=== PATIENT | female | born 1935 ===

== ENCOUNTER → 2019-01-24 | Outpatient (CLI) | payer MEDICARE ==
[~2019-01-24] MED LIST: ACEDIPPM PO; Aspir 8181 MG PO; CALCAVITD PO; CALCIUM 600 +1 EA11 PO; CELE200 PO; DIGESTIVE ENZYME PO; EMERGEN-C PO; ERGO400 PO; ESTMED1.5T PO; FISH1000 PO; GLUCOSAMINE/CHONDR PO; HYDHCL25 PO; LOSA25 PO; MULVITA PO; Percocet 5-3251 EACH PO; Prempro 0.3 MG/1 TAB PO; TYLENOL PM PO; VITAMIN B COMPLEX PO; VITAMIN D PO
== END | disposition home or self-care (01) ==
LOC: LAB SHORT 12:48 → PLD 12:48
DX: R93.89 Abnormal findings on diagnostic imaging of other specified body structures (principal)
CPT/HCPCS: 88305

== ENCOUNTER 2019-05-11 11:53 | Day surgery (SDC) | payer MEDICARE ==
[~2019-05-11] VITALS: Ht 170.2 cm; Wt 70.1 kg
[~2019-05-11 11:53] MED LIST changes: -Aspir 8181 MG PO; -Percocet 5-3251 EACH PO
--- NOTE | 2019-05-11 12:25 | NUR ---
Ambulatory in Day Surgery Surgical site prepped with 2% Chlorhexidine cloth wipe. History, Chart, Medications and Allergies reviewed before start of procedure.Surgical site prepped with 2% Chlorhexidine cloth wipe. Patient confirms NPO status and agrees with scheduled surgery. Patient reports completing Chlorhexadine shower X2 prior to admission to hospital.
--- NOTE | 2019-05-11 18:17 | NUR ---
PT HAS BEEN STABLE THIS SHIFT. PT HAS BEEN HYPERTENSIVE, MEDS GIVEN SCHEDULED. PT SENSATION HAS RETURNED TO NORMAL AFTER SPINAL ANESTHESIA. PAIN CONTROLLED WITH SCHEDULED AND PRN MEDS. PT HAS VOIDED X1. UP TO AMBULATE HALLWAY AND SIT IN CHAIR. ELEONORA WRAP CDI. PAS, TEDS AND POLAR PACK IN PLACE. SPOUSE AT BEDSIDE, ATTENTIVE. PT USES CALL LIGHT APPROPRIATELY NEEDED.
[2019-05-12 04:12] LABS: BASOPHILS ABSOLUTE AUTO 0.07 K/mm3 (0.00-0.23); BASOPHILS PERCENT AUTO 1 % (0-2); EOSINOPHILS ABSOLUTE AUTO 0.11 K/mm3 (0.00-0.68); EOSINOPHILS PERCENT AUTO 1 % (0-6); Hematocrit 35.4 % (33.0-51.0); Hemoglobin 11.5 g/dL (11.5-16.0); IMMATURE GRAN ABSOLUTE AUTO 0.03 K/mm3 (0.00-0.10); IMMATURE GRAN PERCENT AUTO 0 % (0-1); LYMPHOCYTES ABSOLUTE AUTO 1.39 K/mm3 (0.84-5.20); LYMPHOCYTES PERCENT AUTO 12 % (21-46); MONOCYTES PERCENT AUTO 10 % (4-13); Mean Corpuscular HGB 29.6 pg (26.0-34.0); Mean Corpuscular HGB Conc 32.5 g/dL (31.5-36.5); Mean Corpuscular Volume 91 fL (80-100); NEUTROPHILS ABSOLUTE AUTO 8.94 K/mm3 (1.96-9.15); NEUTROPHILS PERCENT AUTO 76 % (41-73); Platelet Count 211 K/mm3 (150-400); RDW Coefficient Variation 13.4 % (11.7-14.2); RDW Standard Deviation 45.1 fL (35.1-46.3); Red Blood Cell Count 3.88 M/mm3 (3.80-5.20); White Blood Cell Count 11.74 K/mm3 (4.00-11.30)
[2019-05-12 04:33] LABS: Anion Gap 5 mmol/L (6-16); Blood Urea Nitrogen 13 mg/dL (8-24); Bun/Creatinine Ratio 17.7 (12.0-20.0); CO2, Blood 27 mmol/L (21-32); Calcium, Blood 8.7 mg/dL (8.5-10.1); Chloride, Blood 106 mmol/L (98-108); Creatinine, Blood 0.73 mg/dL (0.40-1.00); Glomerular Filtration Rate >60 (60-); Glucose, Blood 109 mg/dL (70-99); Potassium, Blood 3.9 mmol/L (3.5-5.5); Sodium, Blood 138 mmol/L (136-145)
--- NOTE | 2019-05-12 04:55 | NUR ---
SHIFT SUMMARY LYING IN SEMI FOWLERS WITH EYES CLOSED. GOOD PAIN MANAGEMENT ACHIEVED. AMBULATED ALL AROUND UNIT, TOLERATED WELL. TOLERATED DIET AND ORAL FLUIDS EASILY. DENIES FURTHER NEEDS AT THIS TIME. SAFETY MEASURES IN PLACE. WILL GIVE HAND OFF TO ONCOMING SHIFT USING SBAR.
[2019-05-12] MEDS ORDERED: Percocet 5-3251 EACH PO (11:35)
[2019-05-12] MEDS ORDERED: Aspir 8181 MG PO (11:36)
--- NOTE | 2019-05-12 13:40 | NUR ---
PATIENT D/C'D HOME WITH SPOUSE AT THIS TIME. PATIENT STATES UNDERSTANDING OF MEDS, ACTIVITY, WOUND CARE, OP PT, F/U VISIT, ETC. PATIENT STATES PAIN WELL CONTROLLED WITH PO PAIN MED. TAKING PO. VOIDING WELL. NO C/O AT THIS TIME. NO ACUTE CHANGES.
== END 2019-05-12 13:40 | disposition home or self-care (01) ==
LOC: ORSCMMR 11:53 → ORD 12:15 → ORSCMMR 12:15 → SURS 15:19 → ORSCMMR 05-12 13:40
PROVIDERS: Orthopaedic Surgery
PROC: 0SRD0JA Replacement of Left Knee Joint with Synthetic Substitute, Uncemented, Open Approach (ICD-10-PCS; principal; 2019-05-11 12:45)
DX: M17.12 Unilateral primary osteoarthritis, left knee (principal); I10 Essential (primary) hypertension; Z79.899 Other long term (current) drug therapy
CPT/HCPCS: 36415; 73560-LT; 80048; 85025; 86850; 86900; 86901; 88300; 97110; 97116; 97161; 97530; C1776; J0171; J0690; J0735; J1885; J2250; J2704; J2795; J3010; J7120

== ENCOUNTER 2020-11-12 09:38 | Inpatient (IN) | payer MEDICARE ==
[~2020-11-12] VITALS: Ht 167.6 cm; Wt 68.4 kg
[~2020-11-12 09:38] MED LIST changes: +ALBU90OI INH; +Aspir 8181 MG PO; +Flonase 0.05% N16 GM; +PREMPRO PO; +Percocet 5-3251 EACH PO; +TUMS500 MG PO; +VITAMIN B125000 MC1 PO; +VITAMIN D310 MC4 PO
--- NOTE | 2020-11-12 10:50 | NUR ---
Ambulatory in Day SurgeryBair Paws warming gown applied. Surgical site prepped with 2% Chlorhexidine cloth wipe. History, Chart, Medications and Allergies reviewed before start of procedure. .Lungs clear T/O to Auscultation. Patient confirms NPO status and agrees with scheduled surgery. Pre-Op teaching done. Pt verbalizes understanding. Patient States Post-Procedure ride home has been arranged. Patient reports completing Chlorhexadine shower X2 prior to admission to hospital.
--- NOTE | 2020-11-12 14:49 | NUR ---
COMES TO PACU WITH SLING RO LEFT ARM AQUACEL DRSG IN PLACE AT OP SITE. WIGGLES FINGERS CAP REFILL WNL SENSATION TO FINGERS WNL DENIES PAIN OR NAUSEA PLEASANT ICE PACK TO OP SITE
--- NOTE | 2020-11-12 20:56 | NUR ---
SHIFT SUMMARY PT POST OP LEFT TOTAL SHOULDER REPLACEMENT TODAY. AQUACEL TO LEFT SHOULDER. SLING IN PLACE AND ICE PACK. TOLERATING REGULAR DIET. ALERT AND ORIENTED. AMBULATING IN ROOM. NUMBNESS AND WEAKNESS TO LEFT ARM, HAND, AND FINGERS. RADIAL PULSE STRONG AND FINGERS WARM WITH GOOD CAP REFILL TO LEFT SIDE. REPORT GIVEN TO NEXT SHIFT.
[2020-11-13 04:35] LABS: BASOPHILS ABSOLUTE AUTO 0.03 K/mm3 (0.00-0.23); BASOPHILS PERCENT AUTO 0 % (0-2); EOSINOPHILS PERCENT AUTO 0 % (0-6); Hematocrit 32.6 % (33.0-51.0); IMMATURE GRAN ABSOLUTE AUTO 0.03 K/mm3 (0.00-0.10); IMMATURE GRAN PERCENT AUTO 0 % (0-1); LYMPHOCYTES ABSOLUTE AUTO 1.28 K/mm3 (0.84-5.20); LYMPHOCYTES PERCENT AUTO 16 % (21-46); MONOCYTES PERCENT AUTO 15 % (4-13); Mean Corpuscular HGB 30.6 pg (26.0-34.0); Mean Corpuscular HGB Conc 33.7 g/dL (31.5-36.5); Mean Corpuscular Volume 91 fL (80-100); Mean Platelet Volume 10.6 fL (9.1-12.4); NEUTROPHILS ABSOLUTE AUTO 5.55 K/mm3 (1.96-9.15); NEUTROPHILS PERCENT AUTO 69 % (41-73); Platelet Count 213 K/mm3 (150-400); RDW Coefficient Variation 14.4 % (11.7-14.2); RDW Standard Deviation 48.3 fL (35.1-46.3); White Blood Cell Count 8.09 K/mm3 (4.00-11.30)
[2020-11-13 04:56] LABS: Anion Gap 6 mmol/L (6-16); Blood Urea Nitrogen 16 mg/dL (8-24); Bun/Creatinine Ratio 19.7 (12.0-20.0); CO2, Blood 25 mmol/L (21-32); Chloride, Blood 103 mmol/L (98-108); Creatinine, Blood 0.81 mg/dL (0.40-1.00); Glomerular Filtration Rate >60 (60-); Glucose, Blood 109 mg/dL (70-99); Sodium, Blood 134 mmol/L (136-145)
--- NOTE | 2020-11-13 05:11 | NUR ---
SHIFT SUMMARY LYING IN SEMI FOWLERS WITH EYES OPEN WHILE READING A BOOK, HAS RESTED OFF AND ON. SHE IS PLEASANT AND CHATTY. LEFT ARM IN SLING AND ICE PACK ON FOR COMFORT. GOOD DISTAL PULSES AND CAP REFILL, WARM TO TOUCH, HAS MASSAGED THE HAND THROUGHOUT SHIFT. AQUACELL TO LEFT CW INTACT, NO SHADOWING NOTED. PAIN MANAGED PER EMAR. HAS AMBULATED IN ROOM AND TO COMMODE. NO SIGNIFICANT CHANGES NOTED THIS SHIFT. DENIES FURTHER NEEDS AT THIS TIME. SAFETY MEASURES IN PLACE. WILL CONTINUE TO MONITOR FOR CHANGES/NEEDS AND ADDRESS THEM THEY ARISE. WILL GIVE HAND OFF TO ONCOMING SHIFT USING SBAR DURING BEDSIDE REPORT.
--- NOTE | 2020-11-13 07:30 | NUR ---
pt sitting up in recliner chair pt reports some pain r/t the bandage 3-11/25 pt also stated having some numbness only to the hand cap refill brisk and warm pt has good movement wearing a sling
[2020-11-13] MEDS ORDERED: ASPI81CH PO (08:31)
[2020-11-13] MEDS ORDERED: Percocet 5-3251 EACH PO (08:32)
--- NOTE | 2020-11-13 09:55 | NUR ---
pt working with ot pt's spouse at bedside
== END 2020-11-13 11:21 | disposition home or self-care (01) | DRG 483 ==
LOC: SURS 09:38 → PRE IP 11:00 → SURS 15:29
PROVIDERS: ADMIT Orthopaedic Surgery
PROC: 0RRK00Z Replacement of Left Shoulder Joint with Reverse Ball and Socket Synthetic Substitute, Open Approach (ICD-10-PCS; principal; 2020-11-12 11:00)
DX: M19.012 Primary osteoarthritis, left shoulder (principal); M75.102 Unspecified rotator cuff tear or rupture of left shoulder, not specified as traumatic; I10 Essential (primary) hypertension; J45.909 Unspecified asthma, uncomplicated
CPT/HCPCS: 36415; 73030; 80048; 85025; 97110; 97162; 97165; 97530; 97535; A9270; A9270-GY; J0171; J0690; J0735; J1100; J1885; J2250; J2405; J2704; J2795; J3010; J7120

== ENCOUNTER 2021-02-12 08:09 | Day surgery (SDC) | payer MEDICARE ==
[~2021-02-12] VITALS: Ht 167.6 cm; Wt 68.2 kg
[~2021-02-12 08:09] MED LIST changes: +ASPI81CH PO
== END 2021-02-12 16:48 | disposition home or self-care (01) ==
LOC: ORSCSDS 08:09
PROVIDERS: Internal Medicine Gastroenterology
PROC: 0DBK8ZX Excision of Ascending Colon, Via Natural or Artificial Opening Endoscopic, Diagnostic (ICD-10-PCS; principal; 2021-02-12 09:15)
DX: K62.5 Hemorrhage of anus and rectum (principal); D12.2 Benign neoplasm of ascending colon; K64.8 Other hemorrhoids; J45.909 Unspecified asthma, uncomplicated; Z87.891 Personal history of nicotine dependence; Z79.899 Other long term (current) drug therapy
CPT/HCPCS: 88305; J2704; J7120

== ENCOUNTER 2021-03-07 09:28 | Day surgery (SDC) | payer MEDICARE ==
[~2021-03-07] VITALS: Ht 167.6 cm; Wt 68.3 kg
--- NOTE | 2021-03-07 11:15 | NUR ---
Ambulatory in Day Surgery History, Chart, Medications and Allergies reviewed before start of procedure.Patient confirms NPO status and agrees with scheduled surgery. Patient reports completing Chlorhexadine shower X2 prior to admission to hospital.Surgical site prepped with 2% Chlorhexidine cloth wipe. Lungs clear T/O to Auscultation. Patient States Post-Procedure [facility]
--- NOTE | 2021-03-07 15:48 | NUR ---
arrived into [facility] patient up to bathroom and given coffee afterwards breast binder in place.
--- NOTE | 2021-03-07 16:12 | NUR ---
patient up calling to come get and take home. patient insisting to go home.
--- NOTE | 2021-03-07 16:43 | NUR ---
Discharge instructions reviewed with patient. Patient verbalizes understanding. Copy given to patient to take home. Discharged via wheelchair to private car for ride home. Patient States Post-Procedure ride home has been arranged.
== END 2021-03-07 23:54 | disposition home or self-care (01) ==
LOC: NM 09:28 → ORSCMMR 09:28 → NM 10:30
PROVIDERS: Surgery
PROC: 0HBT0ZZ Excision of Right Breast, Open Approach (ICD-10-PCS; principal; 2021-03-07 12:00)
DX: C50.011 Malignant neoplasm of nipple and areola, right female breast (principal); I10 Essential (primary) hypertension; E78.5 Hyperlipidemia, unspecified; J45.909 Unspecified asthma, uncomplicated; Z79.899 Other long term (current) drug therapy; Z87.891 Personal history of nicotine dependence
CPT/HCPCS: 38792; 88307; A9520; J0690; J1100; J2250; J2405; J2704; J3010; J7120; Q9968

== ENCOUNTER 2022-02-19 07:18 | Day surgery (SDC) | payer MEDICARE ==
[~2022-02-19] VITALS: Ht 167.6 cm; Wt 71.0 kg
--- NOTE | 2022-02-19 08:11 | NUR ---
02/19/22 0811 Shahida Lainez RIGHT EYE @ 0807 [facility] RIGHT EYE @ 0809 BY [email or web address]
--- NOTE | 2022-02-19 09:42 | NUR ---
02/19/22 0942 Toshia Edwards CHARTED ON WRONG PATIENT, CORRECTED
== END 2022-02-19 09:30 | disposition home or self-care (01) ==
LOC: ORSCSDS 07:18
PROVIDERS: Ophthalmology
PROC: 08RJ3JZ Replacement of Right Lens with Synthetic Substitute, Percutaneous Approach (ICD-10-PCS; principal; 2022-02-19 08:30)
DX: H25.11 Age-related nuclear cataract, right eye (principal); I10 Essential (primary) hypertension; E78.5 Hyperlipidemia, unspecified; J45.909 Unspecified asthma, uncomplicated; Z79.899 Other long term (current) drug therapy; Z87.891 Personal history of nicotine dependence
CPT/HCPCS: J2001; J2250; J3010; J3301; J7040; V2632

== ENCOUNTER 2022-03-05 07:15 | Day surgery (SDC) | payer MEDICARE ==
[~2022-03-05] VITALS: Ht 167.6 cm; Wt 70.2 kg
--- NOTE | 2022-03-05 07:42 | NUR ---
03/05/22 0742 Lynne June CALL LIGHT WITHIN REACH. TETRACAINE AT 0739 IN LEFT EYE AND PLEDGETT AT 0740
== END 2022-03-05 09:25 | disposition home or self-care (01) ==
LOC: ORSCSDS 07:15
PROVIDERS: Ophthalmology
PROC: 08RK3JZ Replacement of Left Lens with Synthetic Substitute, Percutaneous Approach (ICD-10-PCS; principal; 2022-03-05 08:30)
DX: H25.12 Age-related nuclear cataract, left eye (principal); Z96.1 Presence of intraocular lens; J45.909 Unspecified asthma, uncomplicated; I10 Essential (primary) hypertension; Z87.891 Personal history of nicotine dependence; Z79.899 Other long term (current) drug therapy
CPT/HCPCS: J2001; J2250; J3010; J3301; J7040; V2632

== ENCOUNTER → 2022-12-09 | Outpatient (CLI) | payer MEDICARE | END | disposition home or self-care (01) | LOC: LAB SHORT 13:03 → LAB 13:03 → PLD 13:03 | DX: L82.1 Other seborrheic keratosis (principal) | CPT/HCPCS: 88305 ==